=== PATIENT | male | born 1980 | race Caucasian/White ===

== ENCOUNTER 2018-11-20 06:21 | Emergency (ER) | payer BC ==
[~2018-11-20] VITALS: Ht 180.3 cm; Wt 127.0 kg
[2018-11-20 06:21] VITALS: BP_SYST 133
--- NOTE | 2018-11-20 06:21 | NUR ---
Pt c/o cough and wheezing x 2 days with fever max of 102 last night. 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 Respirations even and non-labored, BBS clear.
--- NOTE | 2018-11-20 06:21 | NUR ---
Pt ambulatory to bed 6 for evaluation. Pt hooked to cont pulse oximeter
[2018-11-20] MEDS ORDERED: NACL 0.9% 1,000 ML IV ONE ×2 (06:30→08:45)
[2018-11-20] MEDS ORDERED: ALBUTEROL SULFATE 0.083% 2.5 MG/3 ML VIAL.NEB INH ONE ×3 (06:30→09:15)
[2018-11-20] MEDS ORDERED: ACETAMINOPHEN 325 MG TABLET PO ONE (06:30)
--- NOTE | 2018-11-20 06:30 | NUR ---
ER at bedside examining patient.
--- NOTE | 2018-11-20 06:40 | NUR ---
X-ray at bedside.
--- NOTE | 2018-11-20 06:42 | NUR ---
RT at bedside to administer Neb tx.
--- NOTE | 2018-11-20 07:05 | NUR ---
Unsuccessful PIV attempt to LAC, angiocath tip intact, no bleeding. Pt states "I have anxiety because you didn't get the IV." Pt requests another nurse to attempt PIV access.
--- NOTE | 2018-11-20 07:10 | NUR ---
Pt report given to CHARLIE Li.
[2018-11-20 07:32] LABS: BASOPHILS # (AUTO) 0.1 K/uL (0.0-0.2); BASOPHILS % (AUTO) 0.3 % (0.0-2.0); EOSINOPHILS # (AUTO) 0.1 K/uL (0.0-0.4); EOSINOPHILS % (AUTO) 0.8 % (0.0-4.0); HEMATOCRIT 39.9 % (36-54); HEMOGLOBIN 13.5 g/dL (14.0-18.0); LYMPHOCYTES # (AUTO) 3.1 K/uL (1.0-5.5); LYMPHOCYTES % (AUTO) 16.4 % (20.5-51.5); MEAN CORPUSCULAR HEMOGLOBIN 28 pg (27-31); MEAN CORPUSCULAR HGB CONC 34 % (32-36); MEAN CORPUSCULAR VOLUME 84 fL (79.0-98.0); MONOCYTES # (AUTO) 0.7 K/uL (0.0-1.0); MONOCYTES % (AUTO) 3.7 % (1.7-9.3); NEUTROPHILS # (AUTO) 14.9 K/uL (1.8-7.7); NEUTROPHILS % (AUTO) 78.8 % (40.0-70.0); PLATELET COUNT (AUTO) 314 K/uL (130-430); RED BLOOD CELL COUNT(AUTO) 4.75 MIL/uL (4.2-6.2); RED CELL DISTRIBUTION WIDTH 14.2 % (9.0-15.0); WHITE BLOOD COUNT (AUTO) 18.9 K/uL (4.8-10.8)
[2018-11-20 07:50] LABS: CALCIUM 9.2 mg/dL (8.4-11.0); CREATININE 1.16 mg/dL (0.55-1.30); POTASSIUM 3.8 mmol/L (3.5-5.1)
[2018-11-20 08:05] LABS: ALBUMIN 3.8 g/dL (3.4-4.8); TOTAL BILIRUBIN 0.6 mg/dL (0.0-1.0)
--- NOTE | 2018-11-20 08:16 | NUR ---
RN obtained new IV access in the right ac in one attempt with 22g. IV atb infused.
[2018-11-20 09:18] VITALS: BP_SYST 118
--- NOTE | 2018-11-20 09:24 | NUR ---
Patient given written and verbal discharge instructions and verbalizes understanding. ER MD discussed with patient the results and treatment provided. Patient in stable condition. ID arm band removed. IV catheter removed intact and dressing applied, no active bleeding. Rx of albutrerol, motrin, and levaquin given. Patient educated on pain management and to follow up with PMD. Pain Scale 0/10. Opportunity for questions provided and answered. Medication side effect fact sheet provided.
== END 2018-11-20 09:24 | disposition home or self-care (01) ==
LOC: SED 06:21
DX: R05 Cough (principal); R50.9 Fever, unspecified; R53.1 Weakness
CPT/HCPCS: 36415; 71045; 80053; 83605; 84484; 85025; 85379; 87040; 93005; 94640; 96365; 99284; J1956; J7030; J7613